=== PATIENT | male | born 1985 | race African-American/Black ===

== ENCOUNTER 2023-12-15 19:24 | Emergency (ER) | payer OTHER ==
[2023-12-15 19:57] VITALS: BMI 41.3
[2023-12-15 20:33] LABS: HEMATOCRIT 47.7 % (35.4-49); HEMOGLOBIN 16.4 GM/dL (11.7-16.9); MCH 29.5 pg (25.7-33.7); MCHC 34.4 g/dl (32.0-35.9); MEAN CELL VOLUME 85.9 fl (80-96); MEAN PLT VOLUME 10.7 fl (7.5-11.1); PLATELET COUNT 209 10^3/uL (134-434); RBC 5.55 M/mm3 (4.00-5.60); RDW 14.3 % (11.9-15.9); WHITE BLOOD COUNT 20.1 K/mm3 (4.0-10.0)
[2023-12-15 20:33] LABS: THROAT:GRP A STREP DETECTED (NOTDETECTED)
[2023-12-15] MEDS ORDERED: ACETAMINOPHEN INJECTION 100 ML ONE (20:39)
[2023-12-15] MEDS: ACETAMINOPHEN 1000 MG/100 ML BAG IVPB ONE (20:43)
[2023-12-15] MEDS: KETOROLAC TROMETHAMINE 30 MG/1 ML VIAL IVPUSH ONE (20:52)
[2023-12-15] MEDS: DEXAMETHASONE SOD PHOSPHATE 10 MG/1 ML VIAL IVPUSH ONE (20:52)
[2023-12-15 21:05] LABS: CALCIUM 9.6 mg/dL (8.5-10.1)
[2023-12-15 21:06] LABS: BLOOD UREA NITROGEN 15.1 mg/dL (7-18)
[2023-12-15 21:09] LABS: CREATININE 1.3 mg/dL (0.55-1.3)
[2023-12-15 21:17] LABS: ANISOCYTOSIS 0; MACROCYTOSIS 0
[2023-12-15] MEDS ORDERED: AMPICILLIN NA/SULBACTAM NA 3 GM/100 ML BAG IVPB ONE (21:33)
[2023-12-15] MEDS: AMPICILLIN NA/SULBACTAM NA 3 GM in SODIUM CHLORIDE 100 ML IVPB ONE (21:42)
[2023-12-15] MEDS ORDERED: LIDOCAINE HCL 1%, 10 MG/ML (20ML VIAL) ONE (22:33)
[2023-12-15] MEDS ORDERED: LIDOCAINE VISCOUS 2% ORAL/TOP 15 ML UNIT-DOSE CUP ONE (22:35)
[2023-12-15] MEDS: LIDOCAINE VISCOUS 2% ORAL/TOP 15 ML UNIT-DOSE CUP MM ONE (22:39)
[2023-12-15] MEDS: LIDOCAINE HCL 1%, 10 MG/ML (50 mL VIAL) SQ ONE (22:39)
[2023-12-15 23:14] VITALS: BP 153/94; PULSE 99; RESP 18; TEMP 98.5
== END 2023-12-16 00:51 | disposition home or self-care (01) ==
LOC: JER 19:24
PROC: 3E03329 Introduction of Other Anti-infective into Peripheral Vein, Percutaneous Approach (ICD-10-PCS; principal; 2023-12-15)
PROC: 3E033NZ Introduction of Analgesics, Hypnotics, Sedatives into Peripheral Vein, Percutaneous Approach (ICD-10-PCS; 2023-12-15)
PROC: 3E033GC Introduction of Other Therapeutic Substance into Peripheral Vein, Percutaneous Approach (ICD-10-PCS; 2023-12-15)
PROC: 3E0333Z Introduction of Anti-inflammatory into Peripheral Vein, Percutaneous Approach (ICD-10-PCS; 2023-12-15)
DX: J02.0 Streptococcal pharyngitis (principal); Z20.822 Contact with and (suspected) exposure to COVID-19
CPT/HCPCS: 0241U-QW; 36415; 70491-TC; 80048; 85025; 87651; 99285-25; J0131; J1100; Q9967